=== PATIENT | female | born 2000 | race Caucasian/White ===

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

== ENCOUNTER 2018-02-18 18:30 | Emergency (ER) | payer SELFPAY ==
[~2018-02-18] VITALS: Ht 167.6 cm; Wt 84.1 kg
[~2018-02-18 18:30] MED LIST: CIPRO500 MG PO; FLAGYL500 MG PO; PHENERGAN25 M1 PO
[2018-02-18 18:49] VITALS: Ht 167.6 cm; Wt 84.1 kg
[2018-02-18 20:08] LABS: APPEARANCE CLEAR (CLEAR); COLOR YELLOW (YELLOW); HCG URINE NEGATIVE (NEGATIVE)
[2018-02-18 20:09] LABS: BILIRUBIN NEGATIVE (NEGATIVE); GLUCOSE NEGATIVE (NEGATIVE); KETONE SMALL mg/dL (NEGATIVE); NITRITE NEGATIVE (NEGATIVE); PROTEIN NEGATIVE (NEGATIVE); UROBILINOGEN NORMAL (NORMAL)
[2018-02-18 20:11] LABS: BACTERIA FEW /hpf (NONE SEEN); EPITHELIAL CELLS 0-5 /hpf (0-5); RED CELLS - URINE 0-5 /hpf (0-5); WHITE CELLS - URINE 0-5 /hpf (0-5)
[2018-02-18 23:42] LABS: HEMATOCRIT 36.9 % (36.0-48.0); HEMOGLOBIN 12.8 g/dL (12-16); LYMPHOCYTES 12.4 % (15-50); MCHC 34.7 g/dL (31.0-37.0); MCV 83.5 fL (80.0-100.0); NEUTROPHILS 77.8 % (40-80); PLATELET COUNT 262 10x3/uL (130-400); RBC 4.42 10x6/uL (4.00-5.40); RDW 12.7 % (11.5-14.5); WBC 8.4 10x3/uL (4.8-10.8)
[2018-02-18 23:50] LABS: CALC OSMOLALITY 273 mosm/kg (275-300); CALCIUM 8.4 mg/dL (8.5-10.1); CARBON DIOXIDE 25.6 mmol/L (21.0-32.0); CHLORIDE - SERUM 102 mmol/L (98-107); CREATININE - SERUM 0.7 mg/dL (0.6-1.3); GLUCOSE 111 mg/dL (74-106); POTASSIUM - SERUM 3.5 mmol/L (3.5-5.1); SODIUM 137 mmol/L (136-145); UREA NITROGEN 10 mg/dL (7-18); eGFR NON AFRICAN AMERICAN > 90 mL/min (90-120)
[2018-02-19] MEDS ORDERED: TAMIFLU75 MG PO (00:02)
[2018-02-19 00:23] VITALS: BP 118/79
== END 2018-02-19 00:25 | disposition home or self-care (01) ==
LOC: D.ER 18:30
PROVIDERS: Family Medicine
DX: J11.1 Influenza due to unidentified influenza virus with other respiratory manifestations (principal); M79.18 Myalgia, other site

== ENCOUNTER 2019-05-07 21:45 | Emergency (ER) | payer BC ==
[~2019-05-07] VITALS: Ht 167.6 cm; Wt 89.5 kg
[~2019-05-07 21:45] MED LIST changes: +TAMIFLU75 MG PO
[2019-05-07 22:07] VITALS: Ht 167.6 cm; Wt 89.5 kg
[2019-05-07] MEDS ORDERED: PRENAVITE1 TAB PO (22:10)
[2019-05-07] MEDS ORDERED: TAMIFLU75 MG PO (23:18)
[2019-05-07 23:20] VITALS: BP 120/67
== END 2019-05-07 23:20 | disposition home or self-care (01) ==
LOC: D.ER 21:45
DX: O26.891 Other specified pregnancy related conditions, first trimester (principal); Z3A.08 8 weeks gestation of pregnancy; R05 Cough; J02.9 Acute pharyngitis, unspecified; B34.9 Viral infection, unspecified